=== PATIENT | male | born 1970 | race Hispanic/Latino ===

== ENCOUNTER 2017-07-07 11:23 | Outpatient (CLI) | payer OTHER | END 2017-07-07 11:24 | disposition home or self-care (01) | LOC: ULT 11:23 | PROVIDERS: ATTEND Psychiatry & Neurology Neurology | DX: Z02.9 Encounter for administrative examinations, unspecified (principal) | CPT/HCPCS: 93922 ==

== ENCOUNTER 2017-08-30 22:19 | Emergency (ER) | payer OTHER ==
[2017-08-30 23:33] LABS: ALT (SGPT) 44 U/L (8-55); AST (SGOT) 38 U/L (5-34); Albumin 4.4 g/dL (3.5-5.0); Alkaline Phosphatase 75 U/L (40-150); Anion Gap 17 mmol/L (10-20); BUN (Urea Nitrogen) 39 mg/dL (8.9-20.6); Bilirubin, Total 0.5 mg/dL (0.2-1.2); Calc. Creatinine Clearance 0 mL/min (70-130); Calcium 9.8 mg/dL (7.8-10.44); Carbon Dioxide 23 mmol/L (22-29); Chloride 92 mmol/L (98-107); Estimated GFR-MDRD 37; Glucose 429 mg/dL (70-105); Potassium 4.3 mmol/L (3.5-5.1); Protein, Total 8.4 g/dL (6.0-8.3); Sodium 128 mmol/L (136-145)
[2017-08-30 23:47] LABS: #Eosinphils 0.1 thou/uL (0.0-0.7); #Lymphocytes 1.2 thou/uL (1.20-3.40); #Monocytes 0.5 thou/uL (0.11-0.59); #Neutrophils 3.6 thou/uL (1.40-6.50); %Basophils 0.5 % (0.0-1.0); %Eosinophils 2.6 % (0.0-10.0); %Lymphocytes 21.7 % (21.0-51.0); %Monocytes 9.4 % (0.0-10.0); %Neutrophils 65.8 % (42.0-75.0); Hemoglobin 11.4 g/dL (14.0-18.0); Mean Corpuscular HGB CONC 36.4 g/dL (32.0-36.0); Mean Corpuscular Volume 85.3 fl (80.0-94.0); Mean Platelet Volume 8.8 fL (7.4-10.4); Platelet Count 146 thou/uL (130-400); RBC Distribution Width 14.2 % (11.5-14.5); Red Blood Cell (RBC) Count 3.67 mill/uL (4.70-6.10); White Blood Cell (WBC) Count 5.5 thou/uL (4.8-10.8)
[2017-08-31 00:40] LABS: Bilirubin Negative (Negative); Blood, Urine Negative (Negative); Clarity CLEAR (Clear); Glucose, Urine (Dipstick) >=1000 mg/dL (Negative); Leukocyte Negative (Negative); Nitrite Negative (Negative); Protein, Urine (Dipstick) Negative (Neg-Trace); Specific Gravity, Urine 1.014 (1.002-1.036); Urobilinogen 0.2 mg/dL (0.2-1.0)
--- NOTE | 2017-08-31 08:03 | CT ---
PRELIMINARY REPORT/[facility]/EMERGENCY AFTER HOURS PROCEDURE: EXAM: CT Lumbar Spine Without Intravenous Contrast EXAM DATE/TIME: Exam ordered 08/31/2017 3:49 AM CLINICAL HISTORY: 47 years old, male; Signs and symptoms; Weakness; Patient HX: Er 5; Pt presents from home with primar y C/O numbness to legs. Pt states his legs from the knee down bilaterally feel weak and numb. Pt repo rts dizziness TECHNIQUE: Axial computed tomography images of the lumbar spine without intravenous contrast. Coronal and sagitt al reformatted images were created and reviewed. COMPARISON: No relevant prior studies available. FINDINGS: Vertebrae: L4-L5 posterior disc osteophyte complex causing moderate central canal stenosis, potential ly impinging on the transiting L5 nerve roots.. No acute fracture. Discs/spinal canal/neural foramina: See above. Soft tissues: Unremarkable. Kidneys and ureters: Incompletely visualized right-sided hydronephrosis. IMPRESSION: 1. L4-L5 posterior disc osteophyte complex causing moderate central canal stenosis, potentially impin ging on the transiting L5 nerve roots.. 2. Incompletely visualized right-sided hydronephrosis. Thank you for allowing us to participate in the care of your patient. Dictated and Authenticated by: Johnathan Ernandez MD 08/31/2017 4:04 AM Central Time ([place] & [place]) FINAL REPORT CT LUMBAR SPINE WITH CORONAL AND SAGITTAL REFORMATIONS: Date: 08/31/17 FINDINGS/IMPRESSION: I agree with the preliminary report given by Ethan. POS: [facility]
--- NOTE | 2017-08-31 08:05 | CT ---
PRELIMINARY REPORT/[facility]/EMERGENCY AFTER HOURS PROCEDURE: EXAM: CT Head Without Intravenous Contrast EXAM DATE/TIME: Exam ordered 08/31/2017 3:47 AM CLINICAL HISTORY: 47 years old, male; Signs and symptoms; Dizziness; Patient HX: Er 5; Pt presents from home with prima ry C/O numbness to legs. Pt states his legs from the knee down bilaterally feel weak and numb. Pt rep orts dizziness TECHNIQUE: Axial computed tomography images of the head/brain without intravenous contrast. COMPARISON: No relevant prior studies available. FINDINGS: Brain: 3 cm left frontal arachnoid cyst. No hemorrhage. No significant white matter disease. Ventricles: Unremarkable. No ventriculomegaly. Bones/joints: Unremarkable. No acute fracture. Soft tissues: Unremarkable. Sinuses: Unremarkable as visualized. No acute sinusitis. Mastoid air cells: Unremarkable as visualized. No mastoid effusion. Other findings: The IMPRESSION: No acute findings. Thank you for allowing us to participate in the care of your patient. Dictated and Authenticated by: Johnathan Ernandez MD 08/31/2017 3:53 AM Central Time ([place] & [place]) FINAL REPORT HEAD CT WITHOUT CONTRAST: DATE: 08/31/17. COMPARISON: 07/23/17. HISTORY: Leg numbness and dizziness. FINDINGS: I agree with the preliminary [facility] report. The imaged paranasal sinuses and mastoid air cells are well aerated. There is no displaced calvarial fracture, intracranial hemorrhage, midline shift, or mass effect. Stable left frontal arachnoid cys t noted anteriorly. IMPRESSION: Stable head CT. No evidence for intracranial hemorrhage. POS: [facility]
--- NOTE | 2017-08-31 08:08 | ULT ---
PRELIMINARY REPORT/[facility]/EMERGENCY AFTER HOURS PROCEDURE: EXAM: US Duplex Bilateral Lower Extremity Veins EXAM DATE/TIME: Exam ordered 08/30/2017 11:42 PM CLINICAL HISTORY: 47 years old, male; Signs and symptoms; Edema, localized; Lower extremity, bilateral; Patient HX: Ble weakness, edema in lle TECHNIQUE: Real-time duplex ultrasound scan of the bilateral lower extremity veins integrating B-mode twodimensi onal vascular structure, Doppler spectral analysis, color flow Doppler imaging and compression. COMPARISON: No relevant prior studies available. FINDINGS: Right deep veins: Unremarkable. No DVT in the right common femoral, femoral, proximal deep femoral or popliteal veins. The veins demonstrate normal color flow, are normally compressible, with normal pha sic flow and/or augmentation response. Right superficial veins: Unremarkable. No thrombus in the visualized right great saphenous vein. Left deep veins: Unremarkable. No DVT in the left common femoral, femoral, proximal deep femoral or p opliteal veins. The veins demonstrate normal color flow, are normally compressible, with normal phasi c flow and/or augmentation response. Left superficial veins: Unremarkable. No thrombus in the visualized left great saphenous vein. Soft tissues: No acute findings. No popliteal cyst. IMPRESSION: Normal bilateral lower extremity duplex venous ultrasound. Thank you for allowing us to participate in the care of your patient. Dictated and Authenticated by: Johnathan Ernandez MD 08/31/2017 12:30 AM Central Time ([place] & [place]) FINAL REPORT BILATERAL LOWER EXTREMITY VENOUS DOPPLER UTLRASOUND: DATE: 08/30/17. COMPARISON: None. HISTORY: Lower extremity edema, weakness, and swelling. FINDINGS: I agree with the preliminary [facility] report dictated by Dr. Ernandez. Venous structures of bilateral lo wer extremities are assessed with color flow and spectral analysis. No evidence for DVT seen on eith er side. IMPRESSION: No evidence for deep venous thrombosis of either lower extremity. POS: [facility]
== END 2017-08-31 05:58 | disposition home or self-care (01) ==
LOC: ERS 22:19
DX: E11.65 Type 2 diabetes mellitus with hyperglycemia (principal); G57.93 Unspecified mononeuropathy of bilateral lower limbs; I25.2 Old myocardial infarction; Z79.899 Other long term (current) drug therapy; Z79.82 Long term (current) use of aspirin; Z79.4 Long term (current) use of insulin
CPT/HCPCS: 36416; 70450; 72131; 80053; 81003; 82010; 85025; 93005; 93970; 96360; 96361

== ENCOUNTER 2017-10-09 22:14 | Emergency (ER) | payer OTHER ==
--- NOTE | 2017-10-10 09:15 | RAD ---
LEFT FOOT RADIOGRAPHS THREE VIEWS 10/09/17 PROVIDED CLINICAL HISTORY: Left great toe injury. FINDINGS: There is a transversely oriented nondisplaced fracture involving the great toe distal phalanx. No add itional fracture is evident. Alignment appears anatomic. Joint spaces appear preserved. Vascular calc ifications are seen. Plantar calcaneal enthesophyte formation is seen. IMPRESSION: Nondisplaced great toe distal phalangeal fracture. POS: [facility]
== END 2017-10-10 01:06 | disposition home or self-care (01) ==
LOC: ERS 22:14
DX: S92.425A Nondisplaced fracture of distal phalanx of left great toe, initial encounter for closed fracture (principal); E11.9 Type 2 diabetes mellitus without complications; I10 Essential (primary) hypertension; Z89.421 Acquired absence of other right toe(s); Z79.899 Other long term (current) drug therapy; Z79.82 Long term (current) use of aspirin; W22.8XXA Striking against or struck by other objects, initial encounter
CPT/HCPCS: 12001

== ENCOUNTER 2018-06-08 13:39 | Inpatient (IN) | payer OTHER ==
[~2018-06-08 13:39] MED LIST: ISOVUE-370 76%-LOCM 1 ML ONE
--- NOTE | 2018-06-08 14:08 | RAD ---
EXAM: CHEST ONE VIEW PORTABLE: History: Chest pain, low blood pressure. Comparison: 09-15-17 FINDINGS: Monitor leads overlie the chest. Heart size is normal. The lungs are clear. IMPRESSION: No acute intrathoracic disease. Stable from prior study. POS: [facility]
[2018-06-08 14:15] LABS: #Eosinphils 0.1 thou/uL (0.0-0.7); #Lymphocytes 1.2 thou/uL (1.20-3.40); #Monocytes 0.6 thou/uL (0.11-0.59); #Neutrophils 4.3 thou/uL (1.40-6.50); %Basophils 0.2 % (0.0-1.0); %Eosinophils 0.9 % (0.0-10.0); %Lymphocytes 19.3 % (21.0-51.0); %Monocytes 9.7 % (0.0-10.0); %Neutrophils 69.9 % (42.0-75.0); Hemoglobin 12.2 g/dL (14.0-18.0); Mean Corpuscular HGB CONC 34.9 g/dL (32.0-36.0); Mean Corpuscular Hemoglobin 30.7 pg (27.0-31.0); Mean Corpuscular Volume 88.1 fL (78.0-98.0); Mean Platelet Volume 8.7 fL (7.4-10.4); Platelet Count 125 thou/uL (130-400); Red Blood Cell (RBC) Count 3.98 mill/uL (4.70-6.10); White Blood Cell (WBC) Count 6.2 thou/uL (4.8-10.8)
[2018-06-08 14:29] LABS: ALT (SGPT) 42 U/L (8-55); AST (SGOT) 28 U/L (5-34); Albumin 4.3 g/dL (3.5-5.0); Alkaline Phosphatase 70 U/L (40-150); Anion Gap 17 mmol/L (10-20); BUN (Urea Nitrogen) 30 mg/dL (8.9-20.6); Bilirubin, Total 2.3 mg/dL (0.2-1.2); Calc. Creatinine Clearance 0 mL/min (70-130); Calcium 9.8 mg/dL (7.8-10.44); Carbon Dioxide 22 mmol/L (22-29); Chloride 99 mmol/L (98-107); Estimated GFR-MDRD 39; Globulin 3.2 g/dL (2.4-3.5); Glucose 413 mg/dL (70-105); Potassium 4.1 mmol/L (3.5-5.1); Protein, Total 7.5 g/dL (6.0-8.3); Sodium 134 mmol/L (136-145)
[2018-06-08] MEDS ORDERED: Aspirin Chewable 81 MG TAB ONE ×2 (14:32→14:33)
--- NOTE | 2018-06-08 17:40 | CT ---
CONTRAST ENHANCED CTA CHEST 06/08/18 HISTORY: Chest pain. Contrast enhanced CTA of the chest is performed with 2D and 3D reconstructed images performed on an [employer] 3D workstation. HISTORY: Chest pain. CTA chest demonstrates extensive coronary artery calcification seen in the LAD. Endovascular stents a lso appear to be in place. No evidence of lymphadenopathy seen. No evidence of pulmonary parenchymal masses or lesions seen. The aorta is unremarkable. No evidence of filling defects seen in the pulmonary arteries. No evidence of pleural or pericardial effusions seen. IMPRESSION: Coronary artery calcifications. No acute intrathoracic abnormality seen. POS: [facility]
[2018-06-08 18:42] LABS: Troponin I Less than 0.010 ng/mL (< 0.028)
[2018-06-08 21:34] LABS: Troponin I Less than 0.010 ng/mL (< 0.028)
[2018-06-08 22:00] VITALS: BMI 26.2
[2018-06-09] MEDS ORDERED: Dextrose 50% Abboject 50 ML SYRINGE SLOW IVP PRN (01:06)
[2018-06-09] MEDS ORDERED: Nitroglycerin 0.4 MG TAB (25 Tab Bottle) PO PRN (01:06)
[2018-06-09] MEDS ORDERED: HumaLOG 300 UNITS/3 ML VIAL SC PRN (01:06)
[2018-06-09] MEDS ORDERED: Ondansetron ODT 4 MG TAB PO PRN (01:06)
[2018-06-09] MEDS ORDERED: hydrALAZINE 20 MG/ML VIAL SLOW IVP PRN (01:06)
[2018-06-09] MEDS ORDERED: Ondansetron PF 4 MG/2 ML Vial IVP PRN (01:06)
[2018-06-09] MEDS ORDERED: Dextrose 5% in Water 1,000 ML IV PRN (01:06)
[2018-06-09] MEDS ORDERED: Acetaminophen 325 MG TAB PO PRN (01:06)
--- NOTE | 2018-06-09 01:57 | HP ---
PRIMARY CARE PHYSICIAN: Dr. Munoz. SEALING AND CANCELING MACHINE OPERATOR: Dr. Calero. CHIEF COMPLAINT: Chest discomfort. HISTORY OF PRESENT ILLNESS: Mr. Scanlon is a pleasant 48-year-old gentleman who has a history of coronary artery disease. The patient had a cardiac catheterization back in 06/2017. At that time, he was found to have two-vessel coronary artery disease and had a stent placed to the mid LAD. He said he was doing fine until a couple of months ago when he had a really short episode of chest pain, which resolved spontaneously and then early this morning. He says he woke up and had just eaten breakfast when he started feeling some pain under his left shoulder and into his arm. He said it was not very bad, it was like 04/07, but he felt like something was poking him. He said he got worried because earlier that day, he felt extremely dizzy and out of it. He checked his blood pressure and it was low. He said his daughter had given him some saltine crackers and it got better. This lasted for about 2 hours. Because of these 2 episodes and he says that the pain also seem similar to when he had to have a stent placed, he came to the ER for evaluation. He denies having any nausea, no vomiting. No palpitations. There is no radiation to the pain. He also denies any leg pain or leg swelling, but he does say he has some significant peripheral neuropathy in his legs. REVIEW OF SYSTEMS: All systems were reviewed and are negative except for that mentioned in the history of present illness. PAST MEDICAL HISTORY: Significant for coronary artery disease, diabetes mellitus, hypertension, and hypercholesterolemia. PAST SURGICAL HISTORY: He has had PCI and stent placement as well as amputation of the fifth toe on the right foot. ALLERGIES: NO KNOWN DRUG ALLERGIES. SOCIAL HISTORY: He is single. He has 4 children. He is a nonsmoker and nondrinker. Code status is full code. FAMILY HISTORY: Significant for an [place] in his father and his father also had diabetes, hypertension, and elevated cholesterol, had a stroke. CURRENT MEDICATIONS: Include; 1. Ranexa 1000 mg twice daily. 2. Effient 10 mg daily. 3. Niacin 500 mg at bedtime. 4. Isosorbide mononitrate 30 mg daily. 5. Vascepa 2 g twice a day. 6. Humalog 20 units three times a day. 7. Gabapentin 600 mg t.i.d. 8. Lasix 20 mg daily. 9. Digoxin 0.125 mg daily. 10. Vitamin D3 1000 units daily. 11. Lipitor 40 mg at bedtime. 12. Aspirin 81 mg daily. PHYSICAL EXAMINATION: GENERAL: He is alert and oriented. He appears to be in no acute distress. He is well developed and well nourished. VITAL SIGNS: Blood pressure was 96/53, heart rate 102, respiratory rate of 16, and temperature is 97.6. HEENT: His pupils are equal, round, and reactive. Extraocular muscles are intact. His sclerae anicteric. Throat; there is no erythema. No exudates. NECK: No adenopathy. No bruits. LUNGS: Clear to auscultation. There is no wheezing, no rales, no rhonchi. CARDIOVASCULAR: He has normal S1, S2. There is no S3 or S4. No murmurs, clicks, or rubs. ABDOMEN: Soft. It is nontender and nondistended. Positive for bowel sounds. There is no rebound, no guarding, no organomegaly. EXTREMITIES: He has no edema. No calf tenderness. No joint effusions. NEUROLOGIC: Cranial nerves 2 through 12 are grossly intact. Muscle strength is 5/5 in both his upper and lower extremities. SKIN AND INTEGUMENT: He has some changes of chronic venous stasis on both lower extremities. He has palpable dorsalis pedis pulses bilaterally. The amputation on the 5th toe on the right foot, but there is no skin breakdown. No lesions. LABORATORY DATA: Sodium is 134, potassium 4.1, chloride is 99, CO2 is 22, BUN of 30, creatinine 1.84, and glucose is 413. Total bilirubin was 2.3. White blood cell count 6.2, hemoglobin 12.2, hematocrit is 35, and platelet count is 125. D-dimer was 0.44. Troponins are less than 0.010. ASSESSMENT: This is a 48-year-old gentleman who presents to the emergency room with chest pain that he states is similar to what he had when he required a stent placement. Therefore, it is concerning that this could be unstable angina and also noted there is an elevated bilirubin, which in review of his old records, this is the first time it has been elevated in the near past. 1. With regard to the chest pain, he has already been ruled out. We will place him on aspirin and nitrates and continue statin and Ranexa. His blood pressure is too low for beta tee. We will get a nuclear stress test and consult his province archivist. 2. Given the elevated bilirubin and the patient's symptoms started after eating, we will get an abdominal ultrasound to see if he has any gallstones. 3. Diabetes mellitus. We will reconcile his home medications as well as a sliding scale. 4. Hypertension. Again, reconcile his medicines and p.r.n. medications for blood pressure. Job ID: [id number]
[2018-06-09] MEDS: HumaLOG 300 UNITS/3 ML VIAL SC PRN ×2 (06:43→18:23)
[2018-06-09 07:23] LABS: #Eosinphils 0.1 thou/uL (0.0-0.7); #Lymphocytes 1.1 thou/uL (1.20-3.40); #Monocytes 0.4 thou/uL (0.11-0.59); #Neutrophils 2.6 thou/uL (1.40-6.50); %Basophils 0.3 % (0.0-1.0); %Eosinophils 1.4 % (0.0-10.0); %Lymphocytes 27.1 % (21.0-51.0); %Monocytes 8.6 % (0.0-10.0); %Neutrophils 62.5 % (42.0-75.0); Hemoglobin 11.2 g/dL (14.0-18.0); Mean Corpuscular HGB CONC 35.4 g/dL (32.0-36.0); Mean Corpuscular Hemoglobin 31.6 pg (27.0-31.0); Mean Corpuscular Volume 89.1 fL (78.0-98.0); Mean Platelet Volume 8.3 fL (7.4-10.4); Platelet Count 136 thou/uL (130-400); RBC Distribution Width 12.2 % (11.5-14.5); Red Blood Cell (RBC) Count 3.54 mill/uL (4.70-6.10); White Blood Cell (WBC) Count 4.2 thou/uL (4.8-10.8)
[2018-06-09 07:40] LABS: Anion Gap 13 mmol/L (10-20); BUN (Urea Nitrogen) 31 mg/dL (8.9-20.6); Calc. Creatinine Clearance 71 mL/min (70-130); Calcium 10.3 mg/dL (7.8-10.44); Carbon Dioxide 26 mmol/L (22-29); Cardiac Risk 5.2 (Less than 4.5); Chloride 104 mmol/L (98-107); Cholesterol 135 mg/dl (< 200 Desired); Estimated GFR-MDRD 46; Glucose 355 mg/dL (70-105); HDL Cholesterol 26 mg/dL (>60 Neg Risk); Potassium 4.5 mmol/L (3.5-5.1); Sodium 138 mmol/L (136-145); Triglycerides 434 mg/dL (Less than 150)
[2018-06-09] MEDS ORDERED: ICOSAPENT ETHYL 2 GM PO SCH (08:00)
--- NOTE | 2018-06-09 08:45 | ULT ---
GALLBLADDER ULTRASOUND: INDICATION: Increased bilirubin and liver function tests. FINDINGS: There is echogenicity in the neck of the gallbladder without posterior shadowing suggesting dense ech ogenic sludge and possibly gravel or tiny stones. Gallbladder wall appears normal. The common duct is normal caliber. Liver unremarkable. Pancreas obscured. Right kidney unremarkable. IMPRESSION: Dense sludge and/or gravel seen within the neck of the gallbladder. POS: [facility]
[2018-06-09] MEDS: Gabapentin 300 MG CAP PO SCH ×3 (09:20→21:27)
[2018-06-09] MEDS ORDERED: ADENOSINE 60 MG/20 ML VIAL ONE (09:31)
[2018-06-09] MEDS: Aspirin 325 mg Enteric Coated Tablet PO SCH (13:09)
[2018-06-09] MEDS: Famotidine 20 MG TAB PO SCH ×2 (13:09→21:27)
[2018-06-09] MEDS: Enoxaparin Sodium 30 MG/0.3 ML SYRINGE SC SCH (13:10)
[2018-06-09] MEDS: Prasugrel 10 MG TAB PO SCH (13:10)
[2018-06-09] MEDS: HumaLOG 300 UNITS/3 ML VIAL SC SCH ×2 (13:10→21:29)
[2018-06-09] MEDS: Digoxin 0.125 MG TAB PO SCH (13:10)
--- NOTE | 2018-06-09 13:19 | PRG ---
DATE OF SERVICE: 06/09/2018 SUBJECTIVE: The patient is seen and examined at the bedside. He does not have much complaints to offer. He is not in any pain. He just came back from Radiology, where he had ultrasound of the abdomen done. OBJECTIVE: VITAL SIGNS: Blood pressure is 129/81, pulse is 103, temperature is 98.5, respiratory rate is 20, O2 saturation is 96% on room air. HEENT: His head is atraumatic, normocephalic. Eyes are PERRLA. Sclerae are nonicteric. Oral mucosa is moist. NECK: Supple. LUNGS: Clear. HEART: S1, S2. Tachycardic. No S3. No S4. ABDOMEN: Soft, nontender. Bowel sounds are present. No organomegaly. EXTREMITIES: No clubbing, cyanosis, or edema. NEUROLOGICAL: He is alert and oriented x4. There are no any motor or sensory deficits. Cranial nerves are intact. LABORATORY DATA: Labs showed white count of 4.2, hemoglobin 11.2, hematocrit 31.6, platelet count is 136,000. Electrolytes within normal limits. BUN 31, creatinine 1.6, glucose is 355 on Accu-Cheks, glucose is ranging from 285 to 377, calcium 10.3, triglycerides 434, cholesterol 135, HDL 26, and LDL was not calculated since triglycerides are higher than 400. DIAGNOSTIC DATA: Abdominal ultrasound results: Dense sludge and/or gravel seen within the neck of the gallbladder. IMPRESSION: 1. Recurrent chest pain of unclear etiology at this point. The patient is pain free now. He is awaiting for Cardiology to evaluate him. 2. Diabetes mellitus, uncontrolled. 3. Hypertension. 4. Hypercholesterolemia. 5. Coronary artery disease, PCI and stent placement in 2019. PLAN: The patient just had stress test, nuclear medicine done. We are awaiting for the results to come back. He will be seen by Dr. Calero from Cardiology for evaluation. We will feed him and start his Humalog 20 units 3 times a day. Job ID: [id number]
--- NOTE | 2018-06-09 13:57 | NM ---
CARDIAC SPECT: CLINICAL HISTORY: 48-year-old male with chest pain, coronary artery disease, GA, stent placement, hypertension, diabete s, and dyslipidemia. TECHNIQUE: A myocardial perfusion scan was performed using the single isotope one day protocol with technetium-9 9m sestamibi. 10 mCi were injected intravenously for the rest exam followed by 27 mCi for the stress exam. Pharmacologic stress with Adenosine was monitored and interpreted by Dr. Calero. FINDINGS: There is a large fixed defect involving the anteroseptal wall and the apex. No reversible defects are seen. GATED SPECT LVEF: 33%. WALL MOTION EXAM: Global hypokinesis. IMPRESSION: 1. No evidence of reversible ischemia. 2. Scarring in the anteroseptal and apical feranndez. POS: [facility]
--- NOTE | 2018-06-09 18:44 | CON ---
DATE OF CONSULTATION: HISTORY: Hilario Scanlon junior is a 48-year-old male, whom I have followed since June 2017. Two years prior to that, he had placement of 2 stents in the LAD. Then on May 21, 2017, he presented to the hospital in [place] with a "massive heart attack". He underwent cardiac catheterization and was told that the artery was totally blocked. Resolute 3.0 x 22 mm stent was placed in the LAD according to his product information card. All those procedures were performed at [facility]. He came back to [place] so that his mother could help him recover from his myocardial infarction. He presented here in June 2017 with intermittent episodes of dizziness as well as difficulty speaking at times. While in the emergency room, he developed left- sided chest pressure accompanied by shortness of breath and diaphoresis. Total duration of pain was approximately 1 hour. He was given aspirin and sublingual nitroglycerin and admitted for further evaluation. It was recommended that he undergo cardiac catheterization. He was hydrated for 2 days due to his renal insufficiency. Creatinine during that admission was 2.01 and with hydration fell to 1.30 and then 1.16 after catheterization. Echo revealed the study to be technically difficult with ejection fraction of 35% to 40% with severe hypokinesis of the anteroseptal wall, apical akinesis with evidence for diastolic dysfunction, mitral regurgitation, and mild tricuspid regurgitation. He underwent catheterization, there was distal anterior wall and apical akinesis with ejection fraction of 35% to 40%. Stents were in the proximal and mid LAD and continued to have good results. The mid LAD stent had a 20% stenosis. There was a high diagonal, which was approximately 1 mm vessel with an 80% ostial lesion. It then bifurcated, there was an 80% lesion in one branch and 70% lesion in the other branch. The ramus was small with 90% lesion at the left main. The first obtuse marginal had a 60% lesion. The right coronary artery was normal. He underwent flow measurement of the first obtuse marginal lesion and this was 0.91. It was felt that he should continue to be treated medically for his coronary artery disease. He was placed on long-acting nitrates. He then underwent cardiac rehab and every time he went, his blood pressure was low. He also did have episodes of chest discomfort with or without exertion, lasting approximately 5 minutes. He used nitroglycerin 1 time per week. He was awake and in August 2017 had an episode around 3 or 4 in the morning and another episode around 1030 in the morning. The pain continued on and he came to the emergency room. Troponin was normal. He was on losartan and due to his hypotension that was discontinued. He was placed on Ranexa 500 b.i.d. and 1000 b.i.d. and in general , he has not had any further episodes of exertional chest discomfort. He was last seen in the office in November 2017, again without any exertional chest pain. At that office visit, his cholesterol had gone from 116 to 178 and triglycerides from 341 to 1065. and again low cholesterol low cab diet was emphasized. He now presents with 2 episodes yesterday of left axillary discomfort. Each episode occurred at rest, lasts approximately 20 seconds. He does walk 20 to 30 minutes per day and does not have any chest discomfort with that. He also noted some dizziness and his blood pressure was somewhat low at home, and so he came to the hospital for further evaluation. Cardiac enzymes have been unremarkable. He underwent adenosine Cardiolite testing, which revealed a large fixed defect involving the anterior septal wall and apex consistent with his previous infarct. There were no reversible defects. Gated ejection fraction was 33%. PAST MEDICAL HISTORY: Hypertension, diabetes, hypercholesterolemia, chronic kidney disease, history of myocardial infarction, and coronary artery disease. PAST SURGICAL HISTORY: Amputation of the fifth toe in February 2017 and stent placement. MEDICATIONS: 1. Ranexa 1000 mg b.i.d. 2. Aspirin 81 daily. 3. Atorvastatin 40 at bedtime. 4. Vitamin D3. 5. Digoxin 125 mcg daily. 6. Furosemide 20 mg daily. 7. Gabapentin 600 mg t.i.d. 8. Humalog. 9. Vascepa 2 g b.i.d. 10. Isosorbide mononitrate 30 mg q.a.m. 11. Niacin 500 mg at bedtime. 12. Effient 10 mg daily. ALLERGIES: NONE. SOCIAL HISTORY: He does not smoke or drink. He worked in the past loading trucks. FAMILY HISTORY: Father had CABG. REVIEW OF SYSTEMS: A 12-point review of systems is otherwise unremarkable. PHYSICAL EXAMINATION: VITAL SIGNS: Blood pressure 120/81 and pulse of 103. HEENT: PERRL. NECK: Supple. CHEST: Clear. CARDIAC: S1 and S2 normal without any S3, S4, or murmurs. ABDOMEN: Normal bowel sounds without tenderness or organomegaly. EXTREMITIES: Revealed no clubbing, cyanosis, or edema. NEUROLOGIC: Grossly intact. SKIN: Warm and dry. MUSCULOSKELETAL: Revealed some palpable left anterior axillary line palpable tenderness, which seems to reproduce his discomfort. LABORATORY DATA: EKG revealed sinus tachycardia with rate of 106 per minute, septal infarction. Adenosine Cardiolite test revealed a large fixed defect of the anteroseptal wall and apex consistent with his previous infarction. There was no ischemia. Cardiac enzymes were unremarkable. Hemoglobin 11.2, hematocrit 31.6, white count 4200, platelets 136,000. D-dimer 0.44. Sodium 138, potassium 4.5, chloride 104, carbon dioxide 26, BUN 31, creatinine 1.60, glucose 255, cholesterol 135, triglycerides 434, and HDL 26. IMPRESSION: 1. Atypical chest discomfort with palpable chest wall tenderness. Episodes of pain occurred at rest lasting approximately 20 seconds. 2. Large anteroseptal and apical fixed defect on Cardiolite consistent with his previous myocardial infarction. 3. Placement of 2 stents in the LAD approximately 3 years ago. 4. Anterose[address]al ST-elevation myocardial infarction with totally occluded LAD followed by placement of Resolute 3.0 x 22 mm stent in the LAD in the area more proximal to the previous LAD stents in April 2017. 5. Chronic hypotension. 6. Chronic kidney disease. 7. History of hypertension. 8. Hypercholesterolemia, poorly controlled. 9. Diabetes. 10. Peripheral vascular disease, status post amputation of right fifth toe due to diabetic ulcer. 11. Positive family history. PLAN: The patient will continue his current medications. His current pain does not appear to be cardiac in nature. He does have disease in very small vessels that could not be intervened. However, his current pain does not sound anginal in nature and appears to be more chest wall related. No further cardiac evaluation is warranted. Job ID: [id number] [facility]
[2018-06-09] MEDS ORDERED: Atorvastatin Calcium 40 MG TAB PO SCH (21:00)
[2018-06-10] MEDS: Famotidine 20 MG TAB PO SCH (09:02)
[2018-06-10] MEDS: Aspirin 325 mg Enteric Coated Tablet PO SCH (09:02)
[2018-06-10] MEDS: Gabapentin 300 MG CAP PO SCH (09:02)
[2018-06-10] MEDS: Digoxin 0.125 MG TAB PO SCH (09:02)
[2018-06-10] MEDS: Enoxaparin Sodium 30 MG/0.3 ML SYRINGE SC SCH (09:03)
[2018-06-10] MEDS: Prasugrel 10 MG TAB PO SCH (09:03)
[2018-06-10] MEDS: HumaLOG 300 UNITS/3 ML VIAL SC SCH ×2 (09:04→11:48)
[2018-06-10 10:25] VITALS: BP 108/74; TEMP 98.2
--- NOTE | 2018-06-10 11:36 | DIS ---
DATE OF ADMISSION: 06/08/2018 DATE OF DISCHARGE: 06/10/2018 FINAL DIAGNOSES: 1. Atypical chest pain of noncardiac etiology. 2. Diabetes mellitus, uncontrolled. 3. Hypertension. 4. Hypercholesterolemia. 5. Coronary artery disease, history of acute myocardial infarction in the past, septal ST-elevation myocardial infarction with totally occluded LAD, followed by placement of stent in the LAD in the area more proximal to the previous LAD stent that was inserted in April 2017. 6. Peripheral vascular disease, status post amputation of the right fifth toe due to diabetic ulcer. 7. Chronic kidney disease, stage 4. [employer] DESIGNER: Dr. Dharmesh Calero, Cardiology Service. HOSPITAL COURSE: The patient is a 48-year-old male with history of coronary artery disease and previous heart attack, who presented to the emergency room with chest discomfort, which was somewhat atypical in nature. He got evaluated in the emergency room, was found to have blood pressure of 96/53, but apparently he has some history of chronic hypotension. His electrolytes within normal limits. Creatinine was 1.84 and glucose 413. Total bilirubin was 2.3. White cell count was 6.2, hemoglobin 12.2, hematocrit 35, and platelet count was 125,000. D-dimers were elevated at 0.44. Troponins were less than 0.010. The patient underwent a CT angiogram of the chest to rule out PE, which came back negative, which showed only coronary artery calcifications. The patient underwent nuclear medicine stress test during this hospitalization, which showed no evidence of reversible ischemia and scarring in form of large fixed defect involving the anteroseptal wall and apex, which was present. The patient was seen by Dr. Calero, who felt that this was atypical chest pain and he did not require additional Cardiology intervention or any testing from cardiac point of view. His glycemia was high. He was placed on his home medications and his insulin and this morning, his glucose is down to 160. He is doing well. His blood pressure is 102/62, pulse is 86, temperature 98.0, respirations 18, and O2 saturation 96% on room air. His lungs are clear. Heart; S1 and S2 normal, no S3, no S4, no any murmur. Abdomen is soft and nontender. Extremities; no clubbing, cyanosis, or edema. The patient is discharged home in good condition. ACTIVITIES: As tolerated. DIET: 2000 calories ADA. MEDICATIONS: His medications at the time of discharge: 1. Aspirin 81 mg once a day. 2. Ranexa 1000 mg twice a day. 3. Niacin 500 mg at bedtime. 4. Prasugrel 10 mg once a day. 5. Isosorbide mononitrate 30 mg once a day. 6. Humalog 20 units three times a day. 7. Digoxin once a day. 8. Bydureon Pen 2 mg every 7 days. 9. Gabapentin 600 mg three times a day. 10. Atorvastatin 40 mg at bedtime. 11. Vitamin D3 of 1000 units once a day. 12. Furosemide 20 mg once a day. 13. Vascepa twice a day. FOLLOWUP: He is going to follow up with his primary care physician in 1 week. The patient was seen and examined before his discharge. TIME SPENT: Discharge time is less than 30 minutes. Job ID: [id number]
--- NOTE | 2018-06-11 15:34 | EKG ---
Test Reason : CP HX OF [place] Blood Pressure : / mmHG Vent. Rate : 106 BPM Atrial Rate : 106 BPM P-R Int : 148 ms QRS Dur : 084 ms QT Int : 310 ms P-R-T Axes : 052 047 116 degrees QTc Int : 411 ms Sinus tachycardia Possible Left atrial enlargement Septal infarct , age undetermined Abnormal ECG notem Confirmed by RAGINI Duvall, BAIRON ([id number]), scientific editor MANUEL FLOYD ([id number]) on 06/11/2018 3:34:29 PM Referred By: Confirmed By:BAIRON EID M.D.
== END 2018-06-10 12:41 | disposition home or self-care (01) | DRG 313 ==
LOC: ERS 13:39 → 2NO 19:27 → ERHOLD 19:27 → 2NO 21:56
PROVIDERS: ADMIT Emergency Medicine; ATTEND Emergency Medicine
DX: R07.9 Chest pain, unspecified (principal); E11.65 Type 2 diabetes mellitus with hyperglycemia; I25.10 Atherosclerotic heart disease of native coronary artery without angina pectoris; E11.22 Type 2 diabetes mellitus with diabetic chronic kidney disease; I12.9 Hypertensive chronic kidney disease with stage 1 through stage 4 chronic kidney disease, or unspecified chronic kidney disease; N18.9 Chronic kidney disease, unspecified; I25.2 Old myocardial infarction; E78.00 Pure hypercholesterolemia, unspecified; E11.51 Type 2 diabetes mellitus with diabetic peripheral angiopathy without gangrene; Z89.421 Acquired absence of other right toe(s)
CPT/HCPCS: 36415; 36416; 71045; 71275; 76705; 78452; 80048; 80053; 80061; 83880; 84484; 85025; 85379; 90471; 90686; 93005; 93017; 94760; 96360; 96361; A9500; G0008; J0153; J1650; Q9966

== ENCOUNTER 2018-08-11 20:49 | Emergency (ER) | payer OTHER ==
--- NOTE | 2018-08-11 21:29 | RAD ---
3 views of the left great toe: 08/11/2018 COMPARISON: None HISTORY: Injury, trauma, pain FINDINGS: There is mild degenerative change at the first metatarsal-phalangeal joint. There is a subt le lucency involving the base of the first proximal phalanx medially which may represent age-indeterminate punctate chip fracture. No dislocation. IMPRESSION: Questionable punctate chip fracture at the medial base of the first proximal phalanx. Deg enerative change as detailed above.
[2018-08-11] MEDS ORDERED: Bacitracin Zinc 1 Packet ONE (22:16)
== END 2018-08-11 22:27 | disposition home or self-care (01) ==
LOC: ERS 20:49
DX: S92.422A Displaced fracture of distal phalanx of left great toe, initial encounter for closed fracture (principal); B35.3 Tinea pedis; I25.2 Old myocardial infarction; E11.9 Type 2 diabetes mellitus without complications; I10 Essential (primary) hypertension; X50.1XXA Overexertion from prolonged static or awkward postures, initial encounter

== ENCOUNTER 2019-09-03 06:52 | Inpatient (IN) | payer OTHER, SELFPAY ==
[2019-09-03] MEDS ORDERED: Acetaminophen 500 MG TAB ONE (08:13)
[2019-09-03 08:40] LABS: #Lymphocytes 0.7 thou/uL (1.20-3.40); #Monocytes 0.6 thou/uL (0.11-0.59); #Neutrophils 7.6 thou/uL (1.40-6.50); %Basophils 0.2 % (0.0-1.0); %Eosinophils 0.5 % (0.0-10.0); %Monocytes 6.4 % (0.0-10.0); Hemoglobin 12.7 g/dL (14.0-18.0); Mean Corpuscular HGB CONC 35.7 g/dL (32.0-36.0); Mean Corpuscular Hemoglobin 31.5 pg (27.0-31.0); Mean Corpuscular Volume 88.2 fL (78.0-98.0); Mean Platelet Volume 9.5 fL (7.4-10.4); Platelet Count 125 thou/uL (130-400); RBC Distribution Width 12.5 % (11.5-14.5); Red Blood Cell (RBC) Count 4.03 mill/uL (4.70-6.10); White Blood Cell (WBC) Count 8.9 thou/uL (4.8-10.8)
[2019-09-03 08:51] LABS: ALT (SGPT) 24 U/L (8-55); AST (SGOT) 35 U/L (5-34); Albumin 3.9 g/dL (3.5-5.0); Alkaline Phosphatase 80 U/L (40-110); Anion Gap 16 mmol/L (10-20); BUN (Urea Nitrogen) 35 mg/dL (8.9-20.6); Bilirubin, Total 0.4 mg/dL (0.2-1.2); Calc. Creatinine Clearance 0 mL/min (70-130); Carbon Dioxide 18 mmol/L (22-29); Chloride 103 mmol/L (98-107); Estimated GFR-MDRD 39; Globulin 3.7 g/dL (2.4-3.5); Glucose 500 mg/dL (70-105); Potassium 4.3 mmol/L (3.5-5.1); Protein, Total 7.6 g/dL (6.0-8.3); Sodium 133 mmol/L (136-145)
[2019-09-03] MEDS ORDERED: cefTRIAXone\\ROCEPHIN 2 GM VIAL ONE (09:15)
[2019-09-03] MEDS ORDERED: Aspirin Chewable 81 MG TAB ONE ×3 (09:15→11:37)
[2019-09-03] MEDS ORDERED: Azithromycin 500 MG VIAL ONE (09:15)
[2019-09-03] MEDS ORDERED: Insulin Regular 300 UNITS/3 ML VIAL SC PRN ×2 (10:16)
[2019-09-03] MEDS ORDERED: Dextrose 50% Abboject 50 ML SYRINGE SLOW IVP PRN (10:16)
[2019-09-03] MEDS ORDERED: Senokot S 8.6-50 MG TAB PO PRN (10:16)
[2019-09-03] MEDS ORDERED: Acetaminophen 325 MG TAB PO PRN (10:16)
[2019-09-03] MEDS ORDERED: Ondansetron PF 4 MG/2 ML Vial IVP PRN (10:16)
[2019-09-03] MEDS ORDERED: Ondansetron ODT 4 MG TAB PO PRN (10:16)
[2019-09-03] MEDS ORDERED: Dextrose 5% in Water 1,000 ML IV PRN (10:16)
[2019-09-03] MEDS ORDERED: Calcium Carbonate 500 MG ChewTAB PO PRN (10:16)
[2019-09-03] MEDS ORDERED: Albuterol Sulfate 2.5 mg/3 ml Neb NEB PRN (10:18)
[2019-09-03] MEDS ORDERED: Aspirin 81 mg Enteric Coated Tablet PO SCH (10:30)
[2019-09-03] MEDS ORDERED: Cefepime 1 GM in Sodium Chloride 0.9% 100 ML IVPB SCH (12:00)
[2019-09-03 12:17] LABS: Troponin I 0.022 ng/mL (< 0.028)
--- NOTE | 2019-09-03 12:57 | RAD ---
PORTABLE CHEST: HISTORY: Cough and fever. COMPARISON: 06/08/2018 FINDINGS: Heart size and mediastinum are within normal limits. There are infiltrative changes in the right mid and lower lung romano and also some lower lobe parenchymal changes on the left. IMPRESSION: Bilateral infiltrates. POS: [facility]
--- NOTE | 2019-09-03 13:32 | HP ---
PRIMARY CARE PHYSICIAN: Stanley Rico MD CHIEF COMPLAINT: Generalized weakness with fever and shortness of breath of 2 days' duration. HISTORY OF PRESENT ILLNESS: The patient is a 49-year-old male with diabetes mellitus type 2, hypertension, and coronary artery disease, who presented to the emergency room with above complaints. Over the last 2 to 3 days, the patient developed gradual worsening shortness of breath along with intermittent fever and chills. He also had some cough productive of thick whitish phlegm. He denies any sick contacts. No recent immobilization or travel reported. He denies any nausea, vomiting, diaphoresis, dysuria, hematuria, urgency, or skin rash. In the emergency room, his EKG showed sinus tachycardia with nonspecific ST-T wave changes. His vital signs showed temperature 100.5 with respirations of 20, pulse rate of 120 with blood pressure in one-teens. Later on, his blood pressure dropped to 76/51. After IV fluid, his current blood pressure is 96/61. His chest x-ray showed bilateral infiltrates. He received ceftriaxone and azithromycin with IV fluids in the emergency room. PAST MEDICAL HISTORY: 1. Coronary artery disease, status post stent placement. 2. Hypertension. 3. Diabetes mellitus, type 2. 4. Hyperlipidemia. 5. History of myocardial infarction. 6. Peripheral vascular disease, status post amputation of the right fifth toe due to diabetic ulcer. 7. Chronic kidney disease. PAST SURGICAL HISTORY: 1. Coronary stent placement. 2. Amputation of the fifth toe. ALLERGIES: NO KNOWN DRUG ALLERGIES. CURRENT HOME MEDICATIONS: The patient has not been compliant with all of his medication except for, 1. Aspirin. 2. Insulin. 3. Gabapentin. SOCIAL HISTORY: The patient currently lives at home with his family. No current use of smoking, alcohol, or drug use. FAMILY HISTORY: Positive for heart disease. Diabetes and hypertension also runs in his family. His father had stroke. REVIEW OF SYSTEMS: All other review of systems was reviewed and was found negative. PHYSICAL EXAMINATION: VITAL SIGNS: As discussed above. GENERAL: A 49-year-old male, ill-appearing, in no apparent distress. HEENT: Head, atraumatic and normocephalic. Sclerae are anicteric. Moist mucous membranes. No oral lesion. NECK: Supple. No JVD. No carotid bruit. LUNGS: Showed bilateral rhonchi with rales, especially at bases. Minimal accessory muscle use. No wheezing. HEART: S1 and S2 present. Tachycardic. No rubs or gallops. ABDOMEN: Soft, nontender. Bowel sounds present. No rebound or guarding. No costovertebral angle tenderness. EXTREMITIES: No edema or calf tenderness. NEUROLOGIC: Grossly nonfocal. Moves all 4 extremities. PSYCHIATRY: Alert, awake, and oriented x3. SKIN: Warm and dry. LYMPH NODES: No palpable lymph nodes in the neck. PERIPHERAL VASCULAR: Radial pulses palpable bilaterally. MUSCULOSKELETAL: No joint swelling or tenderness. LABORATORY FINDINGS: CBC showed WBC of 8.9 with hemoglobin 12.7, hematocrit 35.5 with platelet 125, neutrophil 85% with 8% lymphocytes. D-dimer was 0.49. Chemistry showed sodium 133, potassium 4.3, chloride 103, bicarb 18, BUN of 35, creatinine 1.83. CRP was 1.41. Troponin 0.022. Chest x-ray by my review as discussed above. EKG by my review showed sinus tachycardia with nonspecific ST-T wave changes. IMPRESSION: 1. Sepsis secondary to bilateral pneumonia, probably due to COVID-19. 2. Generalized weakness with body aches secondary to above. 3. Chronic kidney disease, stage 3. 4. Coronary artery disease, status post stent placement. 5. Hyponatremia. 6. Chronic anemia, probably due to nutritional deficiency. 7. Diabetes mellitus, type 2. 8. Hypotension, probably due to sepsis. 9. History of hypertension. 10. Peripheral vascular disease. 11. Hyperlipidemia. PLAN: The patient will be monitored in the intermediate care unit. We will start him on cefepime along with azithromycin. Await COVID testing. Isolation for COVID. We will monitor CRP, D-dimer, and ferritin every other day. Serial troponins. Resume selected home medications once verified. The patient will require 2 to 3 days for stabilization. Insulin sliding scale will be started. We will confirm the home medications. Job ID: [id number]
[2019-09-03 16:11] LABS: Troponin I 0.011 ng/mL (< 0.028)
[2019-09-03] MEDS ORDERED: Cefepime 1 GM VIAL ONE (16:13)
[2019-09-03 17:00] LABS: Bacteria/HPF None Seen HPF (None Seen); Bilirubin Negative (Negative); Blood, Urine Negative (Negative); Clarity Clear (Clear); Glucose, Urine (Dipstick) Greater than 1000 mg/dL (Negative); Leukocyte Negative Leu/uL (Negative); Nitrite Negative (Negative); Protein, Urine (Dipstick) 30 mg/dL (Neg-Trace); RBC/HPF 0-3 HPF (0-3); Squamous Epithelial None Seen HPF (0-3); Urobilinogen Normal mg/dL (Less than 2); WBC/HPF 0-3 HPF (0-3)
--- NOTE | 2019-09-03 19:26 | CT ---
HEAD CT WITHOUT CONTRAST: Date: 09-03-2019 Comparison: 08-31-17 FINDINGS: Left hand weakness and numbness. Technique: Axial CT imaging obtained at 5 mm intervals from vertex to the skull base without contrast . FINDINGS: The imaged paranasal sinuses and mastoid air cells are well aerated. No displace calvarial fracture. No intracranial hemorrhage, midline shift, mass effect, or ventricular enlargement. Stable arachnoid cysts noted in the left frontal region measuring 1.5 cm in AP dimension. IMPRESSION: Stable head CT - no acute findings. Results called to Dr. Noriega 6:37 p.m. 09-03-2019. Code CR
[2019-09-03] MEDS: Gabapentin 300 MG CAP PO SCH ×2 (20:16→21:56)
[2019-09-03] MEDS ORDERED: Albuterol 200 PUFF (6.7GM INHALER) INH PRN (20:44)
[2019-09-03] MEDS ORDERED: Insulin Glargine 15 UNITS in Pre-Filled Syringe 1 EACH SC SCH (21:00)
[2019-09-03] MEDS: Insulin Regular 300 UNITS/3 ML VIAL SC PRN (21:55)
[2019-09-03] MEDS: Famotidine 20 MG TAB PO SCH (21:55)
[2019-09-03] MEDS: guaiFENesin ER 600 MG TAB PO SCH (21:56)
[2019-09-03 23:40] VITALS: BMI 29.7
[2019-09-04] MEDS ORDERED: Cefepime 1 GM in Sodium Chloride 0.9% 100 ML IVPB SCH (04:00)
[2019-09-04 04:45] LABS: #Eosinphils 0.1 thou/uL (0.0-0.7); #Lymphocytes 1.8 thou/uL (1.20-3.40); #Monocytes 0.5 thou/uL (0.11-0.59); #Neutrophils 5.6 thou/uL (1.40-6.50); %Basophils 0.3 % (0.0-1.0); %Eosinophils 1.9 % (0.0-10.0); %Lymphocytes 21.8 % (21.0-51.0); %Monocytes 6.7 % (0.0-10.0); %Neutrophils 69.2 % (42.0-75.0); Hemoglobin 10.9 g/dL (14.0-18.0); Mean Corpuscular HGB CONC 35.8 g/dL (32.0-36.0); Mean Corpuscular Hemoglobin 31.6 pg (27.0-31.0); Mean Corpuscular Volume 88.3 fL (78.0-98.0); Mean Platelet Volume 9.3 fL (7.4-10.4); Platelet Count 119 thou/uL (130-400); RBC Distribution Width 12.6 % (11.5-14.5); Red Blood Cell (RBC) Count 3.44 mill/uL (4.70-6.10)
[2019-09-04 05:29] LABS: ALT (SGPT) 30 U/L (8-55); AST (SGOT) 28 U/L (5-34); Albumin 3.4 g/dL (3.5-5.0); Alkaline Phosphatase 55 U/L (40-110); Anion Gap 10 mmol/L (10-20); BUN (Urea Nitrogen) 23 mg/dL (8.9-20.6); Bilirubin, Total 0.8 mg/dL (0.2-1.2); Calc. Creatinine Clearance 110 mL/min (70-130); Calcium 8.3 mg/dL (7.8-10.44); Carbon Dioxide 21 mmol/L (22-29); Chloride 110 mmol/L (98-107); Estimated GFR-MDRD 67; Globulin 2.8 g/dL (2.4-3.5); Glucose 213 mg/dL (70-105); Potassium 3.3 mmol/L (3.5-5.1); Protein, Total 6.2 g/dL (6.0-8.3); Sodium 138 mmol/L (136-145)
[2019-09-04] MEDS: Insulin Regular 300 UNITS/3 ML VIAL SC PRN ×3 (05:49→17:46)
[2019-09-04] MEDS: Gabapentin 300 MG CAP PO SCH ×3 (08:08→18:38)
[2019-09-04] MEDS: Famotidine 20 MG TAB PO SCH (08:08)
[2019-09-04] MEDS: guaiFENesin ER 600 MG TAB PO SCH (08:09)
[2019-09-04] MEDS ORDERED: Zinc Sulfate 220 MG CAP PO SCH (09:00)
[2019-09-04] MEDS ORDERED: Insulin Glargine 20 UNITS in Pre-Filled Syringe 1 EACH SC SCH (09:00)
[2019-09-04] MEDS ORDERED: Ascorbic Acid 500 mg Chewable Tablet PO SCH (09:00)
[2019-09-04] MEDS ORDERED: Azithromycin 500 MG in Sodium Chloride 0.9% 250 ML 250 ML IVPB SCH (09:00)
[2019-09-04] MEDS ORDERED: Aspirin 81 mg Enteric Coated Tablet PO SCH (09:00)
[2019-09-04] MEDS ORDERED: Multivit, Therapeutic 1 TAB PO SCH (09:00)
[2019-09-04 13:33] LABS: SARS-CoV-2 MS2 Positive; SARS-CoV-2 N Gene Negative; SARS-CoV-2 S Gene Negative; SARS-CoV-2 orf1ab Negative
[2019-09-04] MEDS ORDERED: Potassium Chloride 20 MEQ TAB PO SCH (14:12)
[2019-09-04 17:12] VITALS: BP 125/82; TEMP 97.8
--- NOTE | 2019-09-05 06:48 | DIS ---
DATE OF ADMISSION: 09/03/2019 DATE OF DISCHARGE: 09/04/2019 HOSPITAL COURSE: Mr. Scanlon is a 49-year-old male with medical history of type-2 diabetes, coronary artery disease, and peripheral vascular disease, who presented with fever, shortness of breath, and generalized weakness for 2 days. He was diagnosed with community-acquired pneumonia. During his inpatient stay, COVID was ruled out. He responded promptly to antibiotics and was converted to p.o. levofloxacin to complete treatment for 5 days total. Prior to discharge, the patient arranged his medications considering he does not have insurance. His insulin regimen was modified and he received specific instructions regarding insulin administration as well as logging his blood glucose levels in order to follow up with his primary care physician. PHYSICAL EXAMINATION: VITAL SIGNS: Blood pressure 125/82, temperature 97.8, pulse 92, respiratory rate 18, and oxygen saturation 94% on room air. GENERAL: No apparent distress. HEART: Regular rate and rhythm. No murmurs, gallops, or rubs. LUNGS: Clear to auscultation bilaterally. No wheezing, rales, or rhonchi. ABDOMEN: Nondistended, nontender. Normal bowel sounds. EXTREMITIES: No edema. MEDICATION LIST: New medications: 1. Levofloxacin 750 mg p.o. daily 5 tablets to complete treatment for 5 days total. 2. Humulin 70/30, 50 units subcutaneous b.i.d. All old medications; however, the patient was off medications for 3 months because he did not have insurance (aspirin, atorvastatin, vitamin D, digoxin, Imdur, prasugrel, and ranolazine). Job ID: [id number]
== END 2019-09-04 19:04 | disposition home or self-care (01) | DRG 871 ==
LOC: ERS 06:52 → ERHOLD 10:11 → 2SW 19:55
PROVIDERS: ADMIT Internal Medicine; ATTEND Internal Medicine
PROC: 8E0ZXY6 Isolation (ICD-10-PCS; principal; 2019-09-03)
DX: A41.9 Sepsis, unspecified organism (principal); J18.9 Pneumonia, unspecified organism; N17.9 Acute kidney failure, unspecified; E87.1 Hypo-osmolality and hyponatremia; I25.10 Atherosclerotic heart disease of native coronary artery without angina pectoris; I73.9 Peripheral vascular disease, unspecified; Z20.828 Contact with and (suspected) exposure to other viral communicable diseases; E11.22 Type 2 diabetes mellitus with diabetic chronic kidney disease; E11.51 Type 2 diabetes mellitus with diabetic peripheral angiopathy without gangrene; E78.5 Hyperlipidemia, unspecified; N18.3 Chronic kidney disease, stage 3 (moderate); I12.9 Hypertensive chronic kidney disease with stage 1 through stage 4 chronic kidney disease, or unspecified chronic kidney disease; E11.40 Type 2 diabetes mellitus with diabetic neuropathy, unspecified; D63.1 Anemia in chronic kidney disease; R53.1 Weakness; I95.9 Hypotension, unspecified; Z79.4 Long term (current) use of insulin; I25.2 Old myocardial infarction; Z95.5 Presence of coronary angioplasty implant and graft; Z89.431 Acquired absence of right foot
CPT/HCPCS: 36415; 36416; 70450; 71045; 80053; 81003; 81015; 82728; 83605; 83735; 83880; 84484; 85025; 85379; 86140; 87040; 87086; 87635; 87804; 93005; J0456; J0692; J0696; J1815; J3490; J7050; U0003

== ENCOUNTER 2020-04-17 20:08 | Emergency (ER) | payer OTHER, SELFPAY ==
[2020-04-17 21:07] LABS: #Eosinphils 0.1 thou/uL (0.0-0.7); #Lymphocytes 1.3 thou/uL (1.20-3.40); #Monocytes 0.5 thou/uL (0.11-0.59); #Neutrophils 4.9 thou/uL (1.40-6.50); %Eosinophils 1.6 % (0.0-10.0); %Lymphocytes 18.9 % (21.0-51.0); %Monocytes 7.6 % (0.0-10.0); %Neutrophils 71.9 % (42.0-75.0); Mean Corpuscular HGB CONC 35.8 g/dL (32.0-36.0); Mean Corpuscular Hemoglobin 30.9 pg (27.0-31.0); Mean Corpuscular Volume 86.2 fL (78.0-98.0); Mean Platelet Volume 8.5 fL (7.4-10.4); Platelet Count 171 thou/uL (130-400); RBC Distribution Width 12.9 % (11.5-14.5); Red Blood Cell (RBC) Count 3.88 mill/uL (4.70-6.10); White Blood Cell (WBC) Count 6.8 thou/uL (4.8-10.8)
--- NOTE | 2020-04-17 21:19 | RAD ---
LEFT THUMB THREE VIEWS: 04/17/20 HISTORY: Thumb wound. Evaluation for osteomyelitis. There is some minimal cystic change along the distal aspect of the proximal phalanx of the thumb. Thi s does not appear to represent an acute process. I do not see any definite evidence that would sugges t osteomyelitis. IMPRESSION: No definitive features for osteomyelitis. POS: OFF
[2020-04-17 21:27] LABS: ALT (SGPT) 33 U/L (8-55); AST (SGOT) 19 U/L (5-34); Albumin 3.8 g/dL (3.5-5.0); Alkaline Phosphatase 87 U/L (40-110); Anion Gap 15 mmol/L (10-20); BUN (Urea Nitrogen) 31 mg/dL (8.4-25.7); Bilirubin, Total 0.5 mg/dL (0.2-1.2); Calc. Creatinine Clearance 0 mL/min (70-130); Calcium 9.1 mg/dL (7.8-10.44); Carbon Dioxide 24 mmol/L (22-29); Chloride 99 mmol/L (98-107); Globulin 3.6 g/dL (2.4-3.5); Glucose 381 mg/dL (70-105); Potassium 4.3 mmol/L (3.5-5.1); Protein, Total 7.4 g/dL (6.0-8.3); Sodium 134 mmol/L (136-145)
--- NOTE | 2020-04-17 21:33 | RAD ---
RIGHT MIDDLE FINGER THREE VIEWS: 04/17/20 HISTORY: Evaluation for osteomyelitis. COMPARISON: None. FINDINGS: There is an old appearing erosion with well defined sclerotic margins, almost overhanging margin such as sometimes seen with gout at the DIP joint of the middle finger. There is also some deformity to t he tuft of the distal phalanx. Again, this has more of a chronic appearance. There is soft tissue swe lling of the finger. There are arthritic changes noted. IMPRESSION: Arthritic changes of the finger. Deformity to the tuft to the distal phalanx. I would favor that all these changes are more chronic in nature. No gross bony destructive change. POS: OFF
== END 2020-04-17 23:10 | disposition home or self-care (01) ==
LOC: ERS 20:08
DX: S61.002A Unspecified open wound of left thumb without damage to nail, initial encounter (principal); S60.942A Unspecified superficial injury of right middle finger, initial encounter; E11.40 Type 2 diabetes mellitus with diabetic neuropathy, unspecified; I10 Essential (primary) hypertension; I25.2 Old myocardial infarction; Z79.82 Long term (current) use of aspirin; Z79.899 Other long term (current) drug therapy; Z79.4 Long term (current) use of insulin
CPT/HCPCS: 36415; 80053; 83605; 85025; 85652; 86140; 87040; 87070; 87077; 87186; 87205

== ENCOUNTER 2021-03-27 17:50 | Inpatient (IN) | payer OTHER ==
[2021-03-27] MEDS ORDERED: Acetaminophen 500 MG TAB ONE (18:48)
[2021-03-27] MEDS ORDERED: Ketorolac Tromethamine 30 MG/ML VIAL ONE (18:48)
[2021-03-27 19:07] LABS: #Lymphocytes 0.9 thou/uL (1.20-3.40); #Monocytes 0.7 thou/uL (0.11-0.59); #Neutrophils 7.1 thou/uL (1.40-6.50); %Basophils 0.1 % (0.0-1.0); %Eosinophils 0.1 % (0.0-10.0); %Lymphocytes 9.8 % (21.0-51.0); %Monocytes 8.2 % (0.0-10.0); %Neutrophils 81.8 % (42.0-75.0); Hemoglobin 11.7 g/dL (14.0-18.0); Mean Corpuscular HGB CONC 35.2 g/dL (32.0-36.0); Mean Corpuscular Hemoglobin 31.7 pg (27.0-31.0); Mean Corpuscular Volume 89.9 fL (78.0-98.0); Mean Platelet Volume 8.6 fL (7.4-10.4); Platelet Count 120 thou/uL (130-400); RBC Distribution Width 12.7 % (11.5-14.5); Red Blood Cell (RBC) Count 3.69 mill/uL (4.70-6.10); White Blood Cell (WBC) Count 8.7 thou/uL (4.8-10.8)
[2021-03-27 19:20] LABS: ALT (SGPT) 81 U/L (8-55); AST (SGOT) 69 U/L (5-34); Albumin 3.6 g/dL (3.5-5.0); Alkaline Phosphatase 111 U/L (40-110); Anion Gap 12 mmol/L (10-20); BUN (Urea Nitrogen) 41 mg/dL (8.4-25.7); Calc. Creatinine Clearance 0 mL/min (70-130); Calcium 9.3 mg/dL (7.8-10.44); Carbon Dioxide 25 mmol/L (22-29); Chloride 100 mmol/L (98-107); Globulin 3.6 g/dL (2.4-3.5); Glucose 318 mg/dL (70-105); Protein, Total 7.2 g/dL (6.0-8.3); Sodium 133 mmol/L (136-145)
[2021-03-27 19:42] LABS: CKMB 3.7 ng/mL (0-6.6)
[2021-03-27 19:48] LABS: INR-International Normal Ratio 1.1; PTT 38.8 sec (22.9-36.1); Prothrombin Time 14.7 sec (12.0-14.7)
[2021-03-27 20:20] LABS: Bacteria/HPF None Seen HPF (None Seen); Bilirubin Negative (Negative); Blood, Urine 1+ (Negative); Clarity Clear (Clear); Glucose, Urine (Dipstick) Greater than 1000 mg/dL (Negative); Ketone, Urine Negative (Negative); Leukocyte Negative Leu/uL (Negative); Nitrite Negative (Negative); Protein, Urine (Dipstick) 200 mg/dL (Neg-Trace); Specific Gravity, Urine 1.029 (1.002-1.036); Squamous Epithelial 0-3 HPF (0-3); Urobilinogen Normal mg/dL (Less than 2); WBC/HPF 0-3 HPF (0-3)
[2021-03-27 20:43] LABS: Digoxin Less than 0.15 ng/mL (0.8-2.0)
[2021-03-27 20:59] LABS: SARS-CoV-2 NAA Rapid Test Not Detected (NotDetected)
[2021-03-27] MEDS ORDERED: cefTRIAXone\\ROCEPHIN 1 GM VIAL ONE ×2 (21:05→21:12)
[2021-03-27] MEDS ORDERED: Aspirin 325 MG TAB ONE (21:12)
[2021-03-27] MEDS ORDERED: Doxycycline 100 MG CAP PO SCH (21:15)
[2021-03-27] MEDS ORDERED: Bisacodyl 5 MG TAB PO PRN (21:42)
[2021-03-27] MEDS ORDERED: HYDROcodone/Acetaminophen 7.5/325 mg Tablet PO PRN (21:42)
[2021-03-27] MEDS ORDERED: Ondansetron PF 4 MG/2 ML Vial IVP PRN (21:42)
[2021-03-27] MEDS ORDERED: Senokot S 8.6-50 MG TAB PO PRN (21:42)
[2021-03-27] MEDS ORDERED: Guaifenesin DM 100-10/5 ML UDCUP PO PRN (21:42)
[2021-03-27] MEDS ORDERED: Melatonin 3 MG TAB PO PRN (21:52)
[2021-03-27] MEDS ORDERED: hydrALAZINE 20 MG/ML VIAL SLOW IVP PRN (21:52)
[2021-03-27] MEDS ORDERED: Heparin 5,000 UNITS/ML VIAL SC SCH (22:15)
[2021-03-27] MEDS ORDERED: Albuterol Sulfate 1.25 MG/3 ML NEB NEB PRN (22:17)
[2021-03-27] MEDS ORDERED: Dextrose 50% Abboject 50 ML SYRINGE SLOW IVP PRN (22:19)
[2021-03-27] MEDS ORDERED: Dextrose 5% in Water 1,000 ML IV PRN (22:19)
[2021-03-27] MEDS ORDERED: Nitroglycerin 0.4 MG TAB (25 Tab Bottle) SL PRN (22:31)
[2021-03-27] MEDS: Sodium Chloride 0.9% 1,000 ML IV SCH (22:47)
[2021-03-27 23:16] VITALS: BMI 31.8
[2021-03-28 02:31] LABS: Troponin I 0.083 ng/mL (< 0.028)
[2021-03-28 06:20] LABS: #Lymphocytes 0.4 thou/uL (1.20-3.40); #Monocytes 0.4 thou/uL (0.11-0.59); #Neutrophils 7.3 thou/uL (1.40-6.50); %Eosinophils 0.1 % (0.0-10.0); %Lymphocytes 4.9 % (21.0-51.0); %Monocytes 5.4 % (0.0-10.0); %Neutrophils 89.6 % (42.0-75.0); Mean Corpuscular HGB CONC 34.9 g/dL (32.0-36.0); Mean Corpuscular Volume 91.7 fL (78.0-98.0); Mean Platelet Volume 8.8 fL (7.4-10.4); Platelet Count 109 thou/uL (130-400); RBC Distribution Width 12.8 % (11.5-14.5); Red Blood Cell (RBC) Count 3.44 mill/uL (4.70-6.10); White Blood Cell (WBC) Count 8.1 thou/uL (4.8-10.8)
[2021-03-28] MEDS: HumaLOG 300 UNITS/3 ML VIAL SC PRN ×3 (06:25→21:42)
[2021-03-28 06:38] LABS: ALT (SGPT) 64 U/L (8-55); AST (SGOT) 50 U/L (5-34); Albumin 3.2 g/dL (3.5-5.0); Alkaline Phosphatase 96 U/L (40-110); Anion Gap 13 mmol/L (10-20); BUN (Urea Nitrogen) 40 mg/dL (8.4-25.7); Calc. Creatinine Clearance 81 mL/min (70-130); Calcium 8.1 mg/dL (7.8-10.44); Carbon Dioxide 21 mmol/L (22-29); Cardiac Risk 3.8 (Less than 4.5); Chloride 103 mmol/L (98-107); Cholesterol 122 mg/dl (< 200 Desired); Globulin 2.9 g/dL (2.4-3.5); Glucose 231 mg/dL (70-105); HDL Cholesterol 32 mg/dL (>60 Neg Risk); LDL Cholesterol, Calculated 69 mg/dL; Potassium 3.9 mmol/L (3.5-5.1); Protein, Total 6.1 g/dL (6.0-8.3); Sodium 133 mmol/L (136-145); Triglycerides 105 mg/dL (Less than 150)
[2021-03-28] MEDS: Acetaminophen 325 MG TAB PO PRN ×3 (08:26→21:23)
[2021-03-28] MEDS ORDERED: FLU VACC QS2021-22(6MOS UP)/PF 60 MCG/0.5 ML SYRINGE IM ONE (09:00)
[2021-03-28] MEDS: Famotidine/PF 20 mg/2ml Vial SLOW IVP SCH ×2 (09:55→21:23)
[2021-03-28] MEDS: Heparin 5,000 UNITS/ML VIAL SC SCH ×2 (09:56→21:41)
[2021-03-28] MEDS: HYDROcodone/Acetaminophen 5/325 mg Tablet PO PRN ×2 (10:06→14:18)
[2021-03-28] MEDS ORDERED: ERGOCALCIFEROL PO SCH (11:45)
[2021-03-28] MEDS: Gabapentin 300 MG CAP PO SCH ×2 (14:18→21:23)
[2021-03-28] MEDS: Sodium Chloride 0.9% 1,000 ML IV SCH (16:55)
[2021-03-28] MEDS: HumaLOG 300 UNITS/3 ML VIAL SC SCH (16:55)
[2021-03-28] MEDS: Atorvastatin Calcium 40 MG TAB PO SCH (21:23)
[2021-03-28] MEDS: Lantus 1000 UNITS/10 ML VIAL SC SCH (21:41)
[2021-03-28] MEDS: Brimonidine Tartrate 0.2% Ophth Soln 5 ml Bottle EA EYE SCH (21:41)
[2021-03-28] MEDS ORDERED: Morphine 4 MG/ML VIAL SLOW IVP SCH (22:15)
[2021-03-28] MEDS ORDERED: guaiFENesin 200 MG TAB PO PRN (23:44)
[2021-03-29] MEDS ORDERED: Enoxaparin Sodium 120 MG/0.8 ML SYRINGE SC SCH ×2 (00:04→21:00)
[2021-03-29 00:22] LABS: SARS-CoV-2 NAA Rapid Test Not Detected (NotDetected)
[2021-03-29] MEDS: Acetaminophen 325 MG TAB PO PRN ×2 (04:00→09:11)
[2021-03-29] MEDS: HumaLOG 300 UNITS/3 ML VIAL SC PRN ×3 (06:19→23:12)
[2021-03-29] MEDS ORDERED: Dexamethasone 10 MG/ML VIAL SLOW IVP SCH ×2 (09:00→17:30)
[2021-03-29] MEDS ORDERED: Tamsulosin HCl 0.4 MG CAP PO SCH (09:00)
[2021-03-29] MEDS ORDERED: Aspirin Chewable 81 MG TAB PO SCH (09:00)
[2021-03-29] MEDS ORDERED: Prasugrel 10 MG TAB PO SCH (09:00)
[2021-03-29] MEDS ORDERED: Digoxin 0.125 MG TAB PO SCH (09:00)
[2021-03-29] MEDS ORDERED: FLUoxetine HCl 20 MG CAP PO SCH (09:00)
[2021-03-29] MEDS: Gabapentin 300 MG CAP PO SCH ×2 (09:11→15:36)
[2021-03-29] MEDS: Famotidine/PF 20 mg/2ml Vial SLOW IVP SCH ×2 (09:13→22:40)
[2021-03-29] MEDS: HumaLOG 300 UNITS/3 ML VIAL SC SCH ×2 (09:18→17:14)
[2021-03-29] MEDS: Lantus 1000 UNITS/10 ML VIAL SC SCH (09:19)
[2021-03-29] MEDS: Brimonidine Tartrate 0.2% Ophth Soln 5 ml Bottle EA EYE SCH (09:30)
[2021-03-29] MEDS: Cefepime 2 GM in Sodium Chloride 0.9% 100 ML IVPB SCH ×2 (10:25→20:28)
[2021-03-29 10:49] LABS: Anion Gap 14 mmol/L (10-20); BUN (Urea Nitrogen) 53 mg/dL (8.4-25.7); Calc. Creatinine Clearance 53 mL/min (70-130); Calcium 8.5 mg/dL (7.8-10.44); Carbon Dioxide 21 mmol/L (22-29); Chloride 100 mmol/L (98-107); Glucose 220 mg/dL (70-105); Sodium 131 mmol/L (136-145)
[2021-03-29] MEDS ORDERED: Cefepime 1 GM in Sodium Chloride 0.9% 100 ML IVPB SCH (11:00)
[2021-03-29 11:40] LABS: #Lymphocytes 0.9 thou/uL (1.20-3.40); #Monocytes 0.4 thou/uL (0.11-0.59); #Neutrophils 5.1 thou/uL (1.40-6.50); %Basophils 0.1 % (0.0-1.0); %Eosinophils 0.1 % (0.0-10.0); %Lymphocytes 13.8 % (21.0-51.0); %Neutrophils 79.1 % (42.0-75.0); Hemoglobin 9.6 g/dL (14.0-18.0); Mean Corpuscular HGB CONC 34.8 g/dL (32.0-36.0); Mean Corpuscular Hemoglobin 32.3 pg (27.0-31.0); Mean Corpuscular Volume 92.9 fL (78.0-98.0); Mean Platelet Volume 8.5 fL (7.4-10.4); Platelet Count 97 thou/uL (130-400); RBC Distribution Width 12.9 % (11.5-14.5); Red Blood Cell (RBC) Count 2.96 mill/uL (4.70-6.10); White Blood Cell (WBC) Count 6.4 thou/uL (4.8-10.8)
[2021-03-29 12:08] LABS: Lactic Acid 1.4 mmol/L (0.5-2.2)
[2021-03-29] MEDS ORDERED: Vancomycin 1.5 GRAM/300 ML BAG 1.5 GM in Premix Bag 1 BAG IVPB SCH (15:00)
[2021-03-29 19:53] LABS: Actual Bicarbonate (HCO3a) 16.9 mEq/L (22-28); Base Excess (BEa) -11.2 mEq/L (-2.0 to +3.0); CO2 Tension 47.6 mmHg (35.0-45.0); Carboxyhemoglobin (COHb) 0.7 gm% (0.0-3.0); Hemoglobin (Hb) 10.3 g/dL (14.0-18.0); O2 Tension (PaO2), arterial 136.2 mmHg (80.0-100.0); Potassium - ABG Lab 4.21 mmol/L (3.70-5.30)
[2021-03-29 19:56] LABS: Puncture Site RBA; pH, Arterial 7.17 (7.35-7.45)
[2021-03-29 20:00] LABS: #Lymphocytes 1.5 thou/uL (1.20-3.40); #Monocytes 0.4 thou/uL (0.11-0.59); #Neutrophils 5.1 thou/uL (1.40-6.50); %Eosinophils 0.4 % (0.0-10.0); %Lymphocytes 21.3 % (21.0-51.0); %Monocytes 5.7 % (0.0-10.0); %Neutrophils 72.6 % (42.0-75.0); Hemoglobin 9.9 g/dL (14.0-18.0); Mean Corpuscular HGB CONC 33.6 g/dL (32.0-36.0); Mean Corpuscular Hemoglobin 32.3 pg (27.0-31.0); Mean Corpuscular Volume 96.2 fL (78.0-98.0); Mean Platelet Volume 8.4 fL (7.4-10.4); Platelet Count 104 thou/uL (130-400); RBC Distribution Width 12.9 % (11.5-14.5); Red Blood Cell (RBC) Count 3.05 mill/uL (4.70-6.10)
[2021-03-29] MEDS ORDERED: Midazolam HCl 2 mg/2 ml Vial ONE (20:05)
[2021-03-29] MEDS ORDERED: Sodium Bicarb 50 MEQ/50 ML Abboject 8.4% SYRINGE ONE (20:22)
[2021-03-29 20:26] LABS: Lactic Acid 6.6 mmol/L (0.5-2.2)
[2021-03-29] MEDS ORDERED: Propofol 1,000 MG/100 ML VIAL IV PRN (20:30)
[2021-03-29] MEDS ORDERED: Fentanyl BOLUS 250 ML IVPB PRN (20:30)
[2021-03-29] MEDS ORDERED: Fentanyl CADD 100 ML IV SCH (20:30)
[2021-03-29] MEDS ORDERED: Lorazepam 2 MG/ML VIAL SLOW IVP PRN (20:30)
[2021-03-29] MEDS ORDERED: Morphine 2 MG/ML VIAL SLOW IVP PRN (20:30)
[2021-03-29] MEDS ORDERED: Propofol BOLUS 1,000 MG/100 ML VIAL IV PRN (20:30)
[2021-03-29] MEDS ORDERED: Midazolam HCl 2 mg/2 ml Vial SLOW IVP SCH (20:30)
[2021-03-29] MEDS ORDERED: Sodium Bicarb 50 MEQ/50 ML Abboject 8.4% SYRINGE IVP SCH (20:30)
[2021-03-29 20:33] LABS: BUN (Urea Nitrogen) 58 mg/dL (8.4-25.7); Calc. Creatinine Clearance 44 mL/min (70-130); Calcium 8.3 mg/dL (7.8-10.44); Carbon Dioxide 15 mmol/L (22-29); Chloride 100 mmol/L (98-107); Glucose 208 mg/dL (70-105); Potassium 4.4 mmol/L (3.5-5.1); Sodium 132 mmol/L (136-145)
[2021-03-29] MEDS ORDERED: Sodium Chloride 0.9% 1,000 ML IV SCH ×2 (20:45→21:45)
[2021-03-29 20:47] LABS: Albumin 3.1 g/dL (3.5-5.0)
[2021-03-29 20:50] LABS: Globulin 2.7 g/dL (2.4-3.5); Protein, Total 5.8 g/dL (6.0-8.3)
[2021-03-29 20:51] LABS: Anion Gap 21 mmol/L (10-20); Bilirubin, Total 0.8 mg/dL (0.2-1.2)
[2021-03-29 20:52] LABS: Alkaline Phosphatase 104 U/L (40-110); Phosphorus 5.1 mg/dL (2.3-4.7)
[2021-03-29 20:54] LABS: AST (SGOT) 169 U/L (5-34)
[2021-03-29 20:55] LABS: ALT (SGPT) 143 U/L (8-55)
[2021-03-29 21:17] LABS: CKMB 6.8 ng/mL (0-6.6)
[2021-03-29] MEDS ORDERED: Lorazepam 2 MG/ML VIAL ONE (21:43)
[2021-03-29] MEDS ORDERED: Sterile Water 10 ML ONE (21:43)
[2021-03-29] MEDS ORDERED: Vecuronium 10 MG VIAL ONE (21:43)
[2021-03-29] MEDS ORDERED: Midazolam In 0.9 % NaCl/PF 100 ML IVPB SCH (21:45)
[2021-03-29] MEDS: Vecuronium 10 MG VIAL IVP PRN ×2 (21:48→23:58)
[2021-03-29] MEDS ORDERED: Furosemide 40 MG/4 ML VIAL ONE (22:04)
[2021-03-29] MEDS ORDERED: Sterile Water 10 ML VIAL FS PRN (22:11)
[2021-03-29] MEDS ORDERED: Furosemide 40 MG/4 ML VIAL SLOW IVP SCH (22:15)
[2021-03-29] MEDS ORDERED: Norepinephrine 8 MG/0.9% NS 250 ML ONE (22:38)
[2021-03-29 22:56] LABS: Actual Bicarbonate (HCO3a) 22.4 mEq/L (22-28); Base Excess (BEa) -4.6 mEq/L (-2.0 to +3.0); Calcium, Ionized (arterial) 1.12 mmol/L (1.12-1.30); Carboxyhemoglobin (COHb) 0.5 gm% (0.0-3.0); Hemoglobin (Hb) 10.4 g/dL (14.0-18.0); Potassium - ABG Lab 4.12 mmol/L (3.70-5.30); pH, Arterial 7.27 (7.35-7.45)
[2021-03-29 23:00] LABS: O2 Tension (PaO2), arterial 38.4 mmHg (80.0-100.0)
[2021-03-29] MEDS ORDERED: Azithromycin 500 MG in Sodium Chloride 0.9% 250 ML 250 ML IVPB SCH (23:00)
[2021-03-29 23:01] LABS: Puncture Site RRA
[2021-03-30] MEDS: methylPREDNISolone Sod Succ 40 MG VIAL ONE (00:15)
[2021-03-30 00:28] LABS: Lactic Acid 1.8 mmol/L (0.5-2.2)
[2021-03-30] MEDS ORDERED: Norepinephrine 8 MG/0.9% NS 250 ML IVPB SCH (01:15)
[2021-03-30] MEDS: Lantus 1000 UNITS/10 ML VIAL SC SCH (01:27)
[2021-03-30] MEDS: Gabapentin 300 MG CAP PO SCH (01:29)
[2021-03-30] MEDS: Atorvastatin Calcium 40 MG TAB PO SCH (01:30)
[2021-03-30] MEDS: Brimonidine Tartrate 0.2% Ophth Soln 5 ml Bottle EA EYE SCH (01:30)
[2021-03-30 02:00] VITALS: BP 119/73
[2021-03-30] MEDS: Vecuronium 10 MG VIAL IVP PRN (02:04)
[2021-03-30] MEDS ORDERED: Sodium Bicarb 50 MEQ/50 ML Abboject 8.4% SYRINGE ONE (02:21)
[2021-03-30] MEDS ORDERED: EPINEPHrine 1 MG/10 ML Abboject SYRINGE ONE (02:21)
[2021-03-30] MEDS ORDERED: methylPREDNISolone Sod Succ 40 MG VIAL IVP SCH (06:00)
[2021-03-30 07:35] VITALS: TEMP 97.9
[2021-03-30] MEDS ORDERED: Dexamethasone 10 MG/ML VIAL SLOW IVP SCH (09:00)
[2021-03-30] MEDS ORDERED: Enoxaparin Sodium 120 MG/0.8 ML SYRINGE SC SCH (09:00)
[2021-03-30 12:21] LABS: SARS-CoV-2 PCR by NAA Not Detected (NotDetected)
[2021-03-30] MEDS ORDERED: Vancomycin 1.5 GRAM/300 ML BAG 1.5 GM in Premix Bag 1 BAG IVPB SCH (15:00)
== END 2021-03-30 03:00 | disposition expired | DRG 208 ==
LOC: ERS 17:50 → 2NO 21:23 → CCU 03-29 19:40
PROVIDERS: ADMIT Internal Medicine; ATTEND Internal Medicine
PROC: 0BH17EZ Insertion of Endotracheal Airway into Trachea, Via Natural or Artificial Opening (ICD-10-PCS; principal; 2021-03-29)
PROC: 5A1935Z Respiratory Ventilation, Less than 24 Consecutive Hours (ICD-10-PCS; 2021-03-29)
DX: J13 Pneumonia due to Streptococcus pneumoniae (principal); J96.01 Acute respiratory failure with hypoxia; N17.9 Acute kidney failure, unspecified; Z66 Do not resuscitate; E11.40 Type 2 diabetes mellitus with diabetic neuropathy, unspecified; E11.22 Type 2 diabetes mellitus with diabetic chronic kidney disease; I25.10 Atherosclerotic heart disease of native coronary artery without angina pectoris; N18.32 Chronic kidney disease, stage 3b; E78.5 Hyperlipidemia, unspecified; E11.65 Type 2 diabetes mellitus with hyperglycemia; I12.9 Hypertensive chronic kidney disease with stage 1 through stage 4 chronic kidney disease, or unspecified chronic kidney disease; I46.8 Cardiac arrest due to other underlying condition; I25.2 Old myocardial infarction; Z89.421 Acquired absence of other right toe(s); Z95.5 Presence of coronary angioplasty implant and graft; Z79.82 Long term (current) use of aspirin; Z79.4 Long term (current) use of insulin
CPT/HCPCS: 0240U; 36415; 36416; 36600; 71045; 71250; 80048; 80053; 80061; 80162; 81003; 81015; 82553; 82728; 82805; 83036; 83605; 83735; 83880; 84100; 84484; 85025; 85379; 85610; 85730; 86140; 87040; 87086; 87149; 87804; 93005; 93010; 93306; 94002; 94003; 94640; 96365; 96375; J0171; J0456; J0692; J0696; J1644; J1650; J1815; J1885; J1940; J1956; J2060; J2250; J2270; J2704; J2920; J3010; J3370; J3490; J7050; J7620; S0028; U0002; U0003; U0005